=== PATIENT | male | born 1985 | race Hispanic/Latino ===

== ENCOUNTER 2017-05-28 06:54 | Emergency (ER) | payer BC, SELFPAY ==
[2017-05-28] MEDS ORDERED: Ketorolac Tromethamine 60 MG/2 ML VIAL ONE (07:11)
== END 2017-05-28 08:28 | disposition home or self-care (01) ==
LOC: BURERS 06:54
DX: M43.6 Torticollis (principal)
CPT/HCPCS: 96372; J1885

== ENCOUNTER 2020-09-26 18:30 | Emergency (ER) | payer SELFPAY ==
[~2020-09-26 18:30] MED LIST: Iopamidol 370 76% 100 ML VIAL ONE
[2020-09-26 18:52] LABS: Bilirubin Negative (Negative); Blood, Urine Trace (Negative); Clarity Clear (Clear); Glucose, Urine (Dipstick) Negative (Negative); Ketone, Urine 15 mg/dL (Negative); Leukocyte Negative (Negative); Nitrite Negative (Negative); Protein, Urine (Dipstick) Negative (Neg-Trace); Specific Gravity, Urine 1.025 (1.005-1.030)
[2020-09-26 18:55] LABS: RBC/HPF None Seen HPF (0-3); Squamous Epithelial 0-3 HPF (0-3); WBC/HPF 0-3 HPF (0-3)
[2020-09-26 18:56] LABS: Bacteria/HPF Rare-Few HPF (None Seen)
[2020-09-26 19:11] LABS: #Basophils 0.1 thou/uL (0.0-0.2); #Lymphocytes 3.8 thou/uL (1.20-3.40); #Monocytes 0.8 thou/uL (0.11-0.59); #Neutrophils 8.8 thou/uL (1.40-6.50); %Basophils 0.7 % (0.0-1.0); %Eosinophils 0.3 % (0.0-10.0); %Lymphocytes 28.3 % (21.0-51.0); %Monocytes 5.7 % (0.0-10.0); %Neutrophils 65.1 % (42.0-75.0); Hemoglobin 16.3 g/dL (14.0-18.0); Mean Corpuscular HGB CONC 33.9 g/dL (32.0-36.0); Mean Corpuscular Hemoglobin 30.4 pg (27.0-31.0); Mean Corpuscular Volume 89.8 fL (78.0-98.0); Mean Platelet Volume 9.4 fL (7.4-10.4); Platelet Count 265 thou/uL (130-400); RBC Distribution Width 11.1 % (11.5-14.5); Red Blood Cell (RBC) Count 5.38 mill/uL (4.70-6.10); White Blood Cell (WBC) Count 13.5 thou/uL (4.8-10.8)
[2020-09-26 19:22] LABS: ALT (SGPT) 30 U/L (8-55); AST (SGOT) 18 U/L (5-34); Albumin 4.6 g/dL (3.5-5.0); Alkaline Phosphatase 76 U/L (40-110); Anion Gap 16 mmol/L (10-20); BUN (Urea Nitrogen) 11 mg/dL (8.9-20.6); Bilirubin, Total 0.8 mg/dL (0.2-1.2); Calc. Creatinine Clearance 0 mL/min (70-130); Calcium 9.5 mg/dL (7.8-10.44); Carbon Dioxide 24 mmol/L (22-29); Chloride 104 mmol/L (98-107); Globulin 3.2 g/dL (2.4-3.5); Glucose 98 mg/dL (70-105); Lipase 11 U/L (8-78); Potassium 3.9 mmol/L (3.5-5.1); Protein, Total 7.8 g/dL (6.0-8.3); Sodium 140 mmol/L (136-145)
--- NOTE | 2020-09-26 20:40 | CT ---
CT ABDOMEN AND PELVIS WITH CONTRAST: 09/26/[address] of the abdomen and pelvis was performed for evaluation of right lower quadrant pain. The lung bases are clear. The liver, spleen, pancreas, gallbladder, adrenal glands, kidneys and abdom inal aorta all appeared normal. There may be a small cap at the end of the gallbladder, of no current consequence. The bowel shows no dilation or wall thickening. There is no inflammatory stranding around any segment of bowel. While one could wonder a little bit about the thickness of the proximal transverse colon, it is collapsed and therefore this could easily explain that. Attention is drawn to the appendix. Proximally, it has a very normal appearance, measuring 6 mm wide and containing air within it. There is a tubular structure just below the cecum that appears to connect up with the rest of the appendix, though it is difficult to see that connection well. If this is the more distal part of a very long a ppendix, then its width is more borderline at 7 to 8 mm. There is absolutely no stranding around here whatsoever. There is certainly no potential at this point to make a diagnosis of appendicitis. How er, if the patient's symptoms were to continue or worsen, or if his labs were suggestive, then this m ay need further follow-up, perhaps even rescanning some hours down the line. No free air or free flui d was seen. CT of the pelvis shows no other pelvic findings of concern, there is no fluid collection, inflammator y change or other finding of concern. IMPRESSION: 1. No obvious acute abdominal findings. 2. Proximal appendix appears normal. What I infer is likely the distal appendix is a little mor e borderline at 7 to 8 mm but with no inflammatory stranding or thickening involved. This is most lik mary kay normal, but if the patient's symptoms continue to occur or worsen, or if his lab work is worrisom e, he may need a follow-up scan. Findings discussed with Dr. Del Castillo at 2022 on 09/26/20. POS: HOME
== END 2020-09-26 20:21 | disposition home or self-care (01) ==
LOC: BURERS 18:30
DX: R10.31 Right lower quadrant pain (principal)
CPT/HCPCS: 74177; 80053; 81003; 81015; 83690; 85025; Q9967

== ENCOUNTER 2021-04-06 10:27 | Emergency (ER) | payer SELFPAY ==
[2021-04-06 11:29] LABS: Bilirubin Small (Negative); Blood, Urine Negative (Negative); Clarity Clear (Clear); Glucose, Urine (Dipstick) 100 mg/dL (Negative); Ketone, Urine Trace mg/dL (Negative); Leukocyte Negative (Negative); Nitrite Positive (Negative); Protein, Urine (Dipstick) 30 mg/dL (Neg-Trace); Specific Gravity, Urine 1.025 (1.005-1.030); pH, Urine 5.5 (5.0-9.0)
[2021-04-06 12:00] LABS: #Basophils 0.1 thou/uL (0.0-0.2); #Lymphocytes 2.5 thou/uL (1.20-3.40); #Monocytes 0.7 thou/uL (0.11-0.59); #Neutrophils 5.9 thou/uL (1.40-6.50); %Basophils 0.9 % (0.0-1.0); %Eosinophils 0.5 % (0.0-10.0); %Lymphocytes 27.3 % (21.0-51.0); %Monocytes 7.4 % (0.0-10.0); %Neutrophils 63.9 % (42.0-75.0); Hemoglobin 15.9 g/dL (14.0-18.0); Mean Corpuscular HGB CONC 34.6 g/dL (32.0-36.0); Mean Corpuscular Hemoglobin 31.2 pg (27.0-31.0); Mean Corpuscular Volume 90.2 fL (78.0-98.0); Mean Platelet Volume 9.8 fL (7.4-10.4); Platelet Count 240 thou/uL (130-400); RBC Distribution Width 10.8 % (11.5-14.5); Red Blood Cell (RBC) Count 5.09 mill/uL (4.70-6.10); White Blood Cell (WBC) Count 9.3 thou/uL (4.8-10.8)
[2021-04-06 12:10] LABS: Bacteria/HPF 1+ HPF (None Seen); RBC/HPF None Seen HPF (0-3); WBC/HPF 0-3 HPF (0-3)
[2021-04-06 12:11] LABS: Mucous/LPF 1+ LPF (<2+)
[2021-04-06] MEDS ORDERED: Ketorolac Tromethamine 30 MG/ML VIAL ONE (12:11)
[2021-04-06 12:15] LABS: ALT (SGPT) 20 U/L (8-55); AST (SGOT) 17 U/L (5-34); Alkaline Phosphatase 72 U/L (40-110); Anion Gap 14 mmol/L (10-20); BUN (Urea Nitrogen) 13 mg/dL (8.9-20.6); Bilirubin, Total 0.5 mg/dL (0.2-1.2); Calc. Creatinine Clearance 0 mL/min (70-130); Calcium 9.4 mg/dL (7.8-10.44); Carbon Dioxide 26 mmol/L (22-29); Chloride 105 mmol/L (98-107); Globulin 2.8 g/dL (2.4-3.5); Glucose 103 mg/dL (70-105); Potassium 4.6 mmol/L (3.5-5.1); Protein, Total 6.8 g/dL (6.0-8.3); Sodium 140 mmol/L (136-145)
== END 2021-04-06 12:52 | disposition home or self-care (01) ==
LOC: BURERS 10:27
DX: N50.812 Left testicular pain (principal); R10.9 Unspecified abdominal pain
CPT/HCPCS: 36415; 74176; 80053; 81003; 81015; 85025; 96374; J1885